=== PATIENT | female | born 1960 ===

== ENCOUNTER 2016-07-02 06:46 | Emergency (ER) | payer OTHER ==
[~2016-07-02] VITALS: Ht 152.4 cm; Wt 68.0 kg
[~2016-07-02 06:46] MED LIST: IBU800 MG PO; LIORESAL 10MG T10 MG PO; TRAMADOL50 MG PO
[2016-07-02 07:15] VITALS: BP 151/95
--- NOTE | 2016-07-02 08:16 | ED GENERAL ADULT ---
History of Present Illness General Chief Complaint: Dizziness Stated Complaint: DIZZINESS, VOMITING Source: patient Exam Limitations: no limitations Allergies Coded Allergies: penicillamine (Intermediate, SWELLING, HIVES 08/27/15) Uncoded Allergies: POWDER GLOVES (Severe, ITCHING 08/27/15) Reconcile Medications Baclofen (Lioresal) 10 MG TAB 1 TAB PO TIDPRN PRN muscle strain Ibuprofen (Ibu) 800 MG TAB 1 TAB PO Q8HR PRN PAIN Meclizine HCl 25 MG TABLET 1 TAB PO TIDPRN VERTIGO TRAMADOL HCL (Tramadol) 50 MG TAB 1-2 TAB PO Q6P PRN severe pain Triage Note: 56 Y/O FEMALE C/O INTERMITTENT DIZZINESS, N/V SINCE LAST NIGHT. STATES SHE ATE "3 PROTEIN BARS AND A LOT OF BLUEBERRIES .. WENT TO BED AND WOKE UP REALLY DIZZY". STATES THE DIZZINESS HAS IMPROVED AND IS ONLY PRESENT IF SHE MOVES HER HEAD QUICKLY. +NAUSEA, VOMIT X 1 THIS AM. Triage Nurses Notes Reviewed? yes HPI: 56-year-old woman seen for evaluation of dizziness, lightheadedness, nausea, vomiting, and vertigo last evening. Patient reports that she was in her normal state of health yesterday when for dinner she ate a large carton of blueberries, 3 protein bars, peanut M&M's, and Vietnamese wedding soup for dinner and then went to bed. She woke up around midnight and the room was "spinning" for which she felt she had to hold onto the bed and she cried out, alerting her neighbor. She felt nauseated and had episode of bilious vomiting of food particles and went back to sleep. 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 Additionally she comments on multiple pain complaints localized to her shoulders and elbows over the past few months and black floaters in her vision that she attributes to her glaucoma. She has appointments with her primary care provider Dr. Morris and her software product specialist tomorrow for further evaluation of these complaints. Otherwise she denies any fever, chills, headache, chest pain, palpitations, shortness of breath, cough, diarrhea, and urinary frequency/urgency/pain. (ROMULO SAMUEL,HARMONY) Vital Signs & Intake/Output Vital Signs & Intake/Output Vital Signs Date Time Temp Pulse Resp B/P Pulse O2 O2 Flow FiO2 Ox Delivery Rate 07/02 0944 97.0 64 15 99 Room Air Room Air 07/02 0822 Room Air Room Air 07/02 0715 97.5 60 18 151/95 100 Room Air Past History Travel History Traveled to [place] past 21 day No Medical History Any Pertinent Medical History? 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 No (HARMONY SEBASTIAN MD) Review of Systems Review of Systems Constitutional: Reports: see HPI. (HARMONY SEBASTIAN MD) Physical Exam Physical Exam General Appearance: well developed/nourished, alert, awake, anxious, mild distress Comments: General -well-developed, well-nourished middle-aged woman in mild distress HEENT - NCAT, PERRL, EOMI, anicteric sclera Cardio - S1, S2 w/o murmurs/gallops/rubs Resp - CTA bilaterally w/o wheezing/rhochi/crackles GI - soft, nontender, nondistended, bowel sounds present Neuro - Awake and alert, CN II - XII grossly intact Extremities - no edema, pulses intact Core Measures ACS in differential dx? No CVA/TIA Diagnosis: No Severe Sepsis Present: No Septic Shock Present: No (HARMONY SEBASTIAN MD) Progress Differential Diagnoses I considered the following diagnoses in my evaluation of the patient: Vertigo, labyrinthitis, gastroenteritis, dehydration Initial ED EKG: none Comments: Given patient's history of lightheadedness and dizziness over the past several months it is likely that patient is suffering from an occult benign positional vertigo that was exacerbated by a possible acute gastroenteritis from ingestion of potentially tainted food. Patient is requesting symptomatic relief for her nausea and dizziness for which meclizine was provided. Patient reports that meclizine helped resolve her symptoms for which she was provided a prescription. Complete blood count was within normal limits. Basic metabolic panel was within normal limits. TSH was pending at time of discharge and should be followed up as an outpatient with her primary care provider. Patient was instructed to follow- up with her previously scheduled appointments to her primary care provider and savings counselor for her glaucoma and to take meclizine as instructed. (HARMONY SEBASTIAN MD) Plan of Care: Orders Procedure Date/time Status THYROID STIMULATING HORMONE 07/02 802 Complete CBC WITHOUT DIFFERENTIAL 07/02 802 Complete BASIC METABOLIC PANEL 07/02 802 Complete Laboratory Tests 07/02/16 0820: Anion Gap 13, Estimated GFR > 60, BUN/Creatinine Ratio 22.0, Glucose 126 H, Calcium 9.2, TSH 2.410, CBC w Diff NO MAN DIFF REQ, RBC 4.98, MCV 74.0 L, MCH 24.2 L, RDW 15.8 H, MPV 8.3, Gran % 66.2, Lymphocytes % 26.7, Monocytes % 5.0, Eosinophils % 1.6, Basophils % 0.5, Absolute Granulocytes 3.9, Absolute Lymphocytes 1.6, Absolute Monocytes 0.3, Absolute Eosinophils 0.1, Absolute Basophils 0, PUBS MCHC 32.7 L Comments: No evidence of central vertigo. No evidence of systemic cause of vertigo. Symptoms consistent with peripheral vertigo. (YENI SCHAEFFER MD) Departure Departure Disposition: HOME OR SELF CARE Condition: Stable Clinical Impression Primary Impression: Vertigo Referrals: MAZIN SAMUEL,ANMOL Villagomez (PCP/Family) Departure Forms: Customer Survey General Discharge Information Prescriptions: Current Visit Scripts Meclizine HCl 1 TAB PO TIDPRN #30 TAB (HARMONY SEBASTIAN MD) Resident Co-Sign Statement Statement: ED Attending supervision documentation- [x] I saw and evaluated the patient. I have also reviewed all the pertinent lab results and diagnostic results. I agree with the findings and the plan of care as documented in the Resident's documentation. [] I have reviewed the ED Record and agree with the Resident's documentation. [] Additions or exceptions (if any) to the Resident's note and plan are summarized below: [] (LAURY SAMUEL,YENI Henry) Critical Care Note Critical Care Note Critical Care Time: non-applicable (HARMONY SEBASTIAN MD)
[2016-07-02 08:29] LABS: ABSOLUTE BASOPHIL COUNT 0 /CUMM (0.0-0.2); ABSOLUTE EOSINOPHIL COUNT 0.1 /CUMM (0.0-0.7); ABSOLUTE GRANULOCYTE CT 3.9 /CUMM (1.4-6.5); ABSOLUTE LYMPH COUNT 1.6 /CUMM (1.2-3.4); ABSOLUTE MONOCYTE COUNT 0.3 /CUMM (0.10-0.60); BASOPHIL % 0.5 % (0.0-2.0); EOSINOPHIL % 1.6 % (0-5); GRANULOCYTE % 66.2 % (42.2-75.2); HEMATOCRIT 36.9 % (37-47); MEAN CORPUSCULAR HGB 24.2 PG (27.0-31.0); MEAN CORPUSCULAR HGB CONC 32.7 G/DL (33.0-37.0); MEAN PLATELET VOLUME 8.3 FL (7.4-10.4); PLATELET COUNT 283 /CUMM (130-400); RBC DISTRIBUTION WIDTH 15.8 % (11.5-14.5); RED BLOOD CELL CT 4.98 /CUMM (4.20-5.40); WHITE BLOOD CELL COUNT 5.9 /CUMM (4.8-10.8)
[2016-07-02] MEDS ORDERED: MECLIZINE HCL25 MG PO ×2 (09:18→09:20)
== END 2016-07-02 09:44 ==
LOC: ERH 06:46
PROVIDERS: Emergency Medicine
DX: R42 Dizziness and giddiness (principal); R11.10 Vomiting, unspecified